=== PATIENT | female | born 1970 | race Asian ===

== ENCOUNTER 2017-09-26 02:19 | Emergency (ER) | payer SELFPAY ==
[~2017-09-26] VITALS: Ht 175.3 cm; Wt 59.0 kg
[2017-09-26] MEDS ORDERED: NKM (02:28)
[2017-09-26 02:32] VITALS: BP 138/87
[2017-09-26] MEDS ORDERED: TESSALON PERLE100 M2 ORAL (02:44)
[2017-09-26] MEDS ORDERED: TAMIFLU75 MG ORAL (02:44)
--- NOTE | 2017-09-26 02:47 | Emergency Room Report ---
History of Present Illness General Chief Complaint: Upper Respiratory Illness Source: Patient Present Illness HPI 47-year-old female no significant past medical history presenting with fever chills runny nose and myalgias, cough for 3 days. Pt states cough is productive , with clear non bloody sputum. + sick contacts or no recent travel. Patient does not smoke. Allergies: Coded Allergies: SULFA (SULFONAMIDE ANTIBIOTICS) (Verified Allergy, Unknown, 09/26/17) Patient History Past Medical History: see triage record Past Surgical History: none Pertinent Family History: none Last Menstrual Period: MENOPAUSE Reviewed Nursing Documentation: PMH: Agreed, PSxH: Agreed Nursing Documentation-PMH Past Medical History: No Stated History Review of Systems All Other Systems: negative except mentioned in HPI Physical Exam Vital Signs Date Time Temp Pulse Resp B/P (MAP) Pulse Ox O2 Delivery O2 Flow Rate FiO2 09/26/17 02:22 98.2 67 16 138/87 98 Room Air Sp02 EP Interpretation: reviewed, normal General Appearance: normal inspection, well appearing, no apparent distress, alert, GCS 15, non-toxic Head: normocephalic, atraumatic Eyes: bilateral eye normal inspection, bilateral eye PERRL, bilateral eye EOMI ENT: normal ENT inspection, normal pharynx, normal voice, moist mucus membranes Neck: normal inspection, full range of motion, supple Respiratory: normal inspection, lungs clear, normal breath sounds, no respiratory distress, no retraction, no wheezing, speaking full sentences, chest symmetrical Cardiovascular #1: normal inspection, regular rate, rhythm, no edema, normal capillary refill Cardiovascular #2: 2+ radial (R), 2+ radial (L) Gastrointestinal: normal inspection, non tender, soft, non-distended, no guarding Musculoskeletal: normal inspection, back normal, normal range of motion, non- tender Neurologic: normal inspection, alert, oriented x3, responsive, motor strength/ tone normal, sensory intact, normal gait, speech normal Psychiatric: normal inspection, judgement/insight normal, memory normal Skin: normal inspection, normal color, no rash, warm/dry, well hydrated, normal turgor Medical Decision Making Diagnostic Impression: Primary Impression: Flu-like symptoms ER Course 47-year-old female with fever chills cough runny nose myalgias for 3 days DDX: Likely viral URI. Patient appears nontoxic. Tolerating by mouth Plan: None ER course: Patient remains nontoxic, not in resp distress. Disposition: Patient is to be discharged home with a prescription of Tessalon pearls and Tamiflu Strict precautions discussed with patient on when to return to the emergency room including hemoptysis, high fevers, chills, SOB, unable to eat or drink which may indicate severe illness. Patient is to follow up with their primary care doctor within 5 days. Patient agrees with plan. Please note that this Emergency Department Report was dictated using [employer] technology software, occasionally this can lead to erroneous entry secondary to interpretation by the dictation equipment Chest X-ray CXR: Ordered: Yes 1 view Indication: Cough EP interpretation: Yes Interpretation: No consolidation, no effusion, no PTX, no acute cardiopulmonary disease Impression: No acute disease Electronically signed by Joe Baig MD Last Vital Signs Date Time Temp Pulse Resp B/P (MAP) Pulse Ox O2 Delivery O2 Flow Rate FiO2 09/26/17 02:22 98.2 67 16 138/87 98 Room Air Disposition: HOME, SELF-CARE Condition: Stable Scripts Benzonatate (Tessalon Perle) 100 Mg Capsule 100 MG ORAL THREE TIMES A DAY for 7 Days, #21 PERLE Prov: Joe Baig M.D. 09/26/17 Oseltamivir Phosphate (Tamiflu) 75 Mg Capsule 75 MG ORAL TWICE A DAY for 5 Days, #10 CAP Prov: Joe Baig M.D. 09/26/17 Patient Instructions: Upper Respiratory Infection, Adult Joe Baig M.D. Sep 26, 2017 02:47
[2017-09-26 02:50] VITALS: BP 138/87
== END 2017-09-26 02:50 | disposition home or self-care (01) ==
LOC: EMR 02:50
DX: J11.1 Influenza due to unidentified influenza virus with other respiratory manifestations (principal); Z88.2 Allergy status to sulfonamides
CPT/HCPCS: 99283